=== PATIENT | male | born 1985 | race Two or more races ===

== ENCOUNTER 2021-12-20 11:24 | Emergency (ER) | payer OTHER ==
[2021-12-20 11:45] VITALS: BP 151/100
[2021-12-20] MEDS ORDERED: predniSONE 20 MG TABLET PO STA (12:23)
--- NOTE | 2021-12-20 12:34 | ED Physician Documentation ---
History of Present Illness - Stated complaint Stated Complaint: SWOLLEN TONSILLES - Chief complaint Chief Complaint: General - Additonal information Additional information: 36-year-old male presents emergency department for evaluation of a swollen uvula which he noticed last night. He reports that 48 hours ago he underwent LASIK surgery and has been placing the eyedrops in his eyes as well as taking ibuprofen which she has historically taken in the past. He denies sore throat. No fevers. No difficulty swallowing or with phonation. Since last night he reports that the swelling has improved a little bit but he was uncertain what it was therefore he presents here for evaluation. He does not take NED inhibitor's. No history of similar in the past. Review of Systems Constitutional: reports: Reviewed and negative Nose: reports: Reviewed and negative Throat: reports: Other (Swollen uvula) Cardiac: reports: Reviewed and negative Respiratory: denies: Dyspnea, Cough GI: reports: Reviewed and negative : reports: Reviewed and negative Skin: reports: Reviewed and negative PD PAST MEDICAL HISTORY - Present Medications Home Medications: Ambulatory Orders Medication Instructions Recorded Confirmed Amox/Clav 875/125 [Augmentin] 1 each PO Q12H #20 tablet 12/20/21 Moxifloxacin in NaCl,Iso-Os/Pf 12/20/21 [Moxifloxacin 0.3 mg/0.3ML-NaCl] predniSONE [Deltasone] 40 mg PO DAILY 4 Days #8 tablet 12/20/21 prednisoLONE 1% OPHTH DROPS [Pred 12/20/21 12/20/21 Forte 1% Ophth Drops] - Allergies Allergies/Adverse Reactions: Allergies Allergy/AdvReac Type Severity Reaction Status Date / Time No Known Drug Allergies Allergy Verified 12/20/21 11:45 PD ED PE NORMAL - General General: Alert and oriented X 3, No acute distress, Well developed/nourished - HEENT HEENT: Atraumatic, Moist mucous membranes, Other (Uvula is mildly edematous and deviates to the right. There is no soft palate asymmetry or swelling. No erythema of the posterior oropharynx. Tonsillar bed is benign without exudate. Normal swallow normal phonation. Full range of motion of the neck. No tongue or lip swelling) - Neck Neck: Supple, no meningeal sign, No adenopathy - Cardiac Cardiac: No murmur - Respiratory Respiratory: No respiratory distress - Abdomen Abdomen: Normal bowel sounds, Soft - Back Back: No CVA TTP - Derm Derm: Normal color, Warm and dry - Extremities Extremities: No deformity - Neuro Neuro: Alert and oriented X 3 Results - Vitals Vitals: Vital Signs - 24 hr 12/20/21 11:41 Temperature 36.4 C L Heart Rate 78 Respiratory 16 Rate Blood Pressure 151/100 H O2 Saturation 98 PD MEDICAL DECISION MAKING - ED course Complexity details: reviewed results, re-evaluated patient, considered differential, d/w patient ED course: 36-year-old male presents emergency department for evaluation of isolated edema that he noticed last night before going to bed. He denies a sore throat, fevers, difficulty swallowing or with phonation. He has no history of similar in the past. He did undergo LASEK eye surgery 48 hours ago and is using eyedrops as well as as needed ibuprofen. He is not on an NED inhibitor. On exam the uvula itself is mildly edematous and deviates to the right but there is no soft palate asymmetry, swelling or erythema. Tonsillar beds are unremarkable. Rapid strep was negative here in the emergency department. Patient self reports that since yesterday the edema has begun to improve. Though he does have a very mild quinkes edema of his posterior oropharynx, there is nothing else to suggest aggressive angioedema of the airway. however we did choose to treat him with a short course of steroids as well as Augmentin. Patient is advised to use some Benadryl and cetirizine at home over the next few days. We also discussed the acute emergent return precautions for worsening symptoms. Patient will follow closely with his primary care provider. Departure - Departure Disposition: 01 Home, Self Care Clinical Impression: Quinckes edema Qualifiers: Encounter type: initial encounter Qualified Code(s): T78.3XXA - Angioneurotic edema, initial encounter Condition: Stable Record reviewed to determine appropriate education?: Yes Prescriptions: Amox/Clav 875/125 [Augmentin] 1 each PO Q12H #20 tablet predniSONE [Deltasone] 40 mg PO DAILY 4 Days #8 tablet Comments: Cesario you came to the emergency department today because you noted some swelling on your uvula last night. This is called Quinkes edema You report that it is gotten a little better but this can always be something of concern anytime there is swelling in the back of your throat. In order to help manage this I would like you to fill the prescription for the prednisone and begin taking for the next 4 days starting tomorrow. Your first dose was given today in the ER. I would also like you to fill the prescription for the antibiotics and begin taking as directed. When at home I do recommend that you take Benadryl 25 mg twice daily for the next 2 to 3 days. You can also supplement that with [id number] antihis tamine such as cetirizine. At any point you find that you are having worsening swelling, any difficulty breathing, swallowing or talking or feel short of air then you should return immediately to the ER for a second evaluation. Please discuss this ED visit with your primary care doctor as soon as possible.
[2021-12-20 12:43] LABS: RAPID STREP SCREEN Negative (Negative)
== END 2021-12-20 12:43 | disposition home or self-care (01) ==
LOC: ED 11:24
DX: T78.3XXA Angioneurotic edema, initial encounter (principal); Z98.890 Other specified postprocedural states
CPT/HCPCS: 87070; 87430; 99282; 99283; J7512